=== PATIENT | female | born 1990 | race Caucasian/White ===

== ENCOUNTER 2019-01-28 15:49 | Observation (INO) | payer SELFPAY ==
[2019-01-28] MEDS ORDERED: Bupivacaine 0.5% 30 ML SDV ONE (16:53)
--- NOTE | 2019-01-28 17:24 | PCM.PREANE ---
Preanesthetic Assessment - Anesthesia/Transfusion/Family Hx Anesthesia History: Prior Anesthesia Without Reaction Family History of Anesthesia Reaction: No Transfusion History: No Prior Transfusion(s) - Review of Systems General: No Symptoms Pulmonary: No Symptoms Cardiovascular: No Symptoms Gastrointestinal: No Symptoms Neurological: No Symptoms - Physical Assessment NPO Status Date: 01/28/19 NPO Status Time: 09:00 Vital Signs: BP 110/86, HR 88, RR 20 Sat 100% T 98.1 F Height: 1.7 m Weight: 48.262 kg ASA Class: 2E Mental Status: Alert & Oriented x3 Airway Class: Mallampati = 1 Dentition: Reports: Normal Dentition Thyro-Mental Finger Breadths: 3 Mouth Opening Finger Breadths: 3 ROM/Head Extension: Full Lungs: Clear to Auscultation, Normal Respiratory Effort Cardiovascular: Regular Rate, Regular Rhythm - Lab Values: Laboratory Last Values WBC 9.13 K/mm3 (3.98-10.04) 01/28/19 16:30 RBC 5.12 M/mm3 (3.98-5.22) 01/28/19 16:30 Hgb 15.4 gm/dl (11.2-15.7) 01/28/19 16:30 Hct 44.5 % (34.1-44.9) 01/28/19 16:30 MCV 86.9 fl (79.4-94.8) 01/28/19 16:30 MCH 30.1 pg (25.6-32.2) 01/28/19 16:30 MCHC 34.6 g/dl (32.2-35.5) 01/28/19 16:30 RDW Std Deviation 41.0 fL (36.4-46.3) 01/28/19 16:30 Plt Count 326 K/mm3 (182-369) 01/28/19 16:30 MPV 11.0 fl (9.4-12.3) 01/28/19 16:30 Neut % (Auto) 45.6 % (34.0-71.1) 01/28/19 16:30 Lymph % (Auto) 43.2 % (19.3-51.7) 01/28/19 16:30 [place] % (Auto) 9.6 % (4.7-12.5) 01/28/19 16:30 Eos % (Auto) 1.2 (0.7-5.8) 01/28/19 16:30 Baso % (Auto) 0.3 % (0.1-1.2) 01/28/19 16:30 Neut # (Auto) 4.16 K/mm3 (1.56-6.13) 01/28/19 16:30 Lymph # (Auto) 3.94 K/mm3 (1.18-3.74) H 01/28/19 16:30 [place] # (Auto) 0.88 K/mm3 (0.24-0.36) H 01/28/19 16:30 Eos # (Auto) 0.11 K/mm3 (0.04-0.36) 01/28/19 16:30 Baso # (Auto) 0.03 K/mm3 (0.01-0.08) 01/28/19 16:30 Sodium 141 mEq/L (136-145) 01/28/19 16:30 Potassium 3.3 mEq/L (3.5-5.1) L 01/28/19 16:30 Chloride 101 mEq/L (98-107) 01/28/19 16:30 Carbon Dioxide 31 mEq/L (21-32) 01/28/19 16:30 Anion Gap 12.3 (5-15) 01/28/19 16:30 BUN 15 mg/dL (7-18) 01/28/19 16:30 Creatinine 0.7 mg/dL (0.55-1.02) 01/28/19 16:30 Est Cr Clr Drug Dosing 89.53 mL/min 01/28/19 16:30 Estimated GFR (MDRD) > 60 mL/min (>60) 01/28/19 16:30 BUN/Creatinine Ratio 21.4 (14-18) H 01/28/19 16:30 Glucose 67 mg/dL (74-106) L 01/28/19 16:30 Calcium 9.6 mg/dL (8.5-10.1) 01/28/19 16:30 Magnesium 1.9 mg/dl (1.8-2.4) 01/28/19 16:30 Total Bilirubin 0.2 mg/dL (0.2-1.0) 01/28/19 16:30 AST 10 U/L (15-37) L 01/28/19 16:30 ALT 20 U/L (14-59) 01/28/19 16:30 Alkaline Phosphatase 69 U/L (46-116) 01/28/19 16:30 Total Protein 7.6 g/dl (6.4-8.2) 01/28/19 16:30 Albumin 4.3 g/dl (3.4-5.0) 01/28/19 16:30 Globulin 3.3 gm/dL 01/28/19 16:30 Albumin/Globulin Ratio 1.3 (1-2) 01/28/19 16:30 HCG, Quant < 1.0 mIU/mL 01/28/19 16:30 - Allergies Allergies/Adverse Reactions: Allergies Allergy/AdvReac Type Severity Reaction Status Date / Time Penicillins Allergy Airway Verified 01/28/19 16:53 Tightness - Acknowledgements Anesthesia Type Planned: General Anesthesia Pt an Appropriate Candidate for the Planned Anesthesia: Yes Alternatives and Risks of Anesthesia Discussed w Pt/Guardian: Yes Pt/Guardian Understands and Agrees with Anesthesia Plan: Yes PreAnesthesia Questionnaire - SUBSTANCE USE Smoking Status *Q: Current Some Day Smoker Tobacco Use Within Last Twelve Months: Cigarettes Recreational Drug Type: Reports: Amphetamines (Speed) (last used 01/24/19), Marijuana/Hashish - CURRENT (IN HOUSE) MEDS Current Meds: Current Medications Discontinued Medications Bupivacaine HCl (Marcaine 0.5%) Confirm Administered Dose 30 ml .ROUTE .STK-MED ONE Stop: 01/28/19 16:54
[2019-01-28] MEDS ORDERED: Rocuronium 50 MG/5 ML Vial ONE (17:29)
[2019-01-28] MEDS ORDERED: Propofol 200 MG/20 ML SDV ONE (17:29)
[2019-01-28] MEDS ORDERED: fentaNYL 250 MCG/5 ML SDV ONE (17:30)
[2019-01-28] MEDS ORDERED: Midazolam 1 MG/ML 2 ML SDV ONE (17:30)
[2019-01-28] MEDS ORDERED: Succinylcholine/Normal Saline 100 MG/5 ML Syringe ONE (17:30)
[2019-01-28] MEDS ORDERED: Esmolol 100 MG/10 ML SDV ONE (17:56)
[2019-01-28] MEDS ORDERED: Ondansetron 4 MG/2 ML SDV ONE (18:25)
[2019-01-28] MEDS ORDERED: Lactated Ringers 1,000 ML ONE (18:46)
--- NOTE | 2019-01-28 18:47 | PCM.OPNOTE ---
- General Post-Op/Procedure Note Date of Surgery/Procedure: 01/28/19 Operative Procedure(s): laparoscopy with lysis of adhesion Pre Op Diagnosis: acute abdominal pain Post-Op Diagnosis: Same plus adhesion omentum to right mid anterior wall Anesthesia Technique: General ET Tube Primary Surgeon: Kd Padilla Secondary Surgeon: Franck Medina Anesthesia Provider: Patricio Christensen Manager Oncology: Rolan Haynes (PAS) Reason Manager Oncology Was Necessary: Assist in surgery, decrease comorbidity and mortality. Role of Manager Oncology: Assist in surgery, decrease comorbidity and mortality. Fluid Replacement, Intraop: 1,000 Output, Urine Amount: 100 EBL in mLs: 5 Drain/Tube Comments:: none (lares during surgery removed after surgery) Complications: None Condition: Good Free Text/Narrative:: Patient was transported to the operating room and placed under general anesthesia with endotracheal intubation in the supine position Lares catheter had been placed gravity drainage. SCDs in place and functioning prior surgery. Mefoxin 2 g given intravenously prior surgery with no untoward effect (patient has history of penicillin allergy) examination under anesthesia revealed anterior uterus no adnexal masses were palpated. Patient was prepared and draped in a sterile fashion. 2 mL of Marcaine 0.5% injected at the umbilicus and a vertical incision made in pneumoperitoneum needle was introduced without difficulty pneumoperitoneum was obtained. The 5 mm trocar was then introduced and utilizing the laparoscope prompt visualization of the intra-abdominal contents. An additional midline incision was made after injecting 2 mL of 0.5% Marcaine without epinephrine at the suprapubic region area of her previous scar from her ovarian cystectomy. (at age 14). The appendix appeared normal. There was one adhesion of the omentum to the anterior abdominal wall in the midportion of the abdomen which was subsequently lysed without difficulty. The gallbladder and liver area appeared normal no perihepatic adhesions or scar tissue. The pelvic organs were examined both ovaries and tubes. Normal uterus. Normal is no evidence of endometriosis seen anterior and posterior cul-de-sacs were also normal. Pneumoperitoneum was reduced and the 2 incisions closed with 4 -0 Monocryl interrupted suture and Dermabond applied. Sponge needle pack asthma count correct 2 before closure. Patient was transported postanesthesia care unit in satisfactory condition. Images: Image 001 gallbladder and right lobe of the liver Image 00 2004 ligament and liver Image 003 right ovary and fallopian tube Image 004 left ovary and fallopian tube Image 005 anterior cul-de-sac Image 006 posterior cul-de-sac Image 007 uterosacral ligaments uterus both ovaries and tubes Images 008 normal appendix Image 009 normal appendix Image 010 normal appendix Image 011 adhesion of the omentum to the anterior abdominal wall in the midportion of the abdomen on the right side Image 012 area of attachment of the adhesion after lysis of the adhesion Image 013 the area of the lower abdomen after removal of the trocar no bleeding.
[2019-01-28] MEDS ORDERED: Ketorolac 30 MG/ML SDV IVPUSH ONE (18:53)
[2019-01-28] MEDS ORDERED: Ketorolac 30 MG/ML SDV ONE (18:57)
--- NOTE | 2019-01-28 19:02 | PCM.POSTAN ---
POST ANESTHESIA ASSESSMENT - MENTAL STATUS Mental Status: Alert, Oriented - VITAL SIGNS Vital Signs: Last Vital Signs Temp 98.1 F 01/28/19 17:20 Pulse 88 01/28/19 17:07 Resp 20 01/28/19 17:07 BP 110/86 01/28/19 17:07 Pulse Ox 100 01/28/19 17:07 POSTOP VS 125/85, HR 84, RR 12, T 97 F, SpO2 100% - RESPIRATORY Respiratory Status: Respiratory Rate WNL, Airway Patent, O2 Saturation Stable, Supplemental Oxygen - CARDIOVASCULAR CV Status: Pulse Rate WNL, Blood Pressure Stable - GASTROINTESTINAL GI Status: No Symptoms - PAIN Pain Score: 3 - POST OP HYDRATION Hydration Status: Adequate & Stable
[2019-01-28] MEDS ORDERED: Lactated Ringers 1,000 ML IV SCH (19:15)
[2019-01-28] MEDS ORDERED: Ondansetron 4 MG/2 ML SDV IVPUSH PRN (19:59)
[2019-01-28] MEDS ORDERED: Magnesium Citrate Solution 296 ML Bottle PO ONE (19:59)
--- NOTE | 2019-01-28 21:05 | PCM48HPAN ---
Post Anesthesia Note - EVALUATION WITHIN 48HRS OF ANESTHETIC Vital Signs in Normal Range: Yes Patient Participated in Evaluation: Yes Respiratory Function Stable: Yes Airway Patent: Yes Cardiovascular Function Stable: Yes Hydration Status Stable: Yes Pain Control Satisfactory: Yes Nausea and Vomiting Control Satisfactory: Yes Mental Status Recovered: Yes Vital Signs: Last Vital Signs Temp 98.4 F 01/28/19 19:50 Pulse 69 01/28/19 19:50 Resp 15 01/28/19 19:50 BP 109/84 01/28/19 19:50 Pulse Ox 98 01/28/19 19:50
[2019-01-29] MEDS ORDERED: Bisacodyl 10 MG Supp RECTAL ONE (00:13)
[2019-01-29] MEDS: Acetaminophen 325 MG Tab PO PRN ×2 (00:23→09:27)
[2019-01-29] MEDS: Nicotine 21 MG/24 Hr Patch TRDERM SCH ×2 (00:28→09:26)
[2019-01-29] MEDS ORDERED: Ketorolac 30 MG/ML SDV IVPUSH PRN (01:00)
[2019-01-29] MEDS ORDERED: Ibuprofen 600 MG Tab PO PRN (07:11)
--- NOTE | 2019-01-29 08:22 | PCM.DCSUM1 ---
Discharge Summary - Hospital Course Free Text/Narrative:: [facility] Post-Op/Procedure Note Patient Name: YELENA CHAPMAN Date of : 86 Patient Status: Observation Attending Provider: Kd Padilla Date: 01/28/19 18:38 Initialization Date: 01/28/19 18:38 - General Post-Op/Procedure Note Date of Surgery/Procedure: 01/28/19 Operative Procedure(s): laparoscopy with lysis of adhesion Pre Op Diagnosis: acute abdominal pain Post-Op Diagnosis: Same plus adhesion omentum to right mid anterior wall Anesthesia Technique: General ET Tube Primary Surgeon: Kd Padilla Secondary Surgeon: Franck Medina Anesthesia Provider: Patricio Christensen Script Girl: Rolan Haynes (PAS) Reason Script Girl Was Necessary: Assist in surgery, decrease comorbidity and mortality. Role of Script Girl: Assist in surgery, decrease comorbidity and mortality. Fluid Replacement, Intraop: 1,000 Output, Urine Amount: 100 EBL in mLs: 5 Drain/Tube Comments:: none (lares during surgery removed after surgery) Complications: None Condition: Good Free Text/Narrative:: Patient was transported to the operating room and placed under general anesthesia with endotracheal intubation in the supine position Lares catheter had been placed gravity drainage. SCDs in place and functioning prior surgery. Mefoxin 2 g given intravenously prior surgery with no untoward effect (patient has history of penicillin allergy) examination under anesthesia revealed anterior uterus no adnexal masses were palpated. Patient was prepared and draped in a sterile fashion. 2 mL of Marcaine 0.5% injected at the umbilicus and a vertical incision made in pneumoperitoneum needle was introduced without difficulty pneumoperitoneum was obtained. The 5 mm trocar was then introduced and utilizing the laparoscope prompt visualization of the intra-abdominal contents. An additional midline incision was made after injecting 2 mL of 0.5% Marcaine without epinephrine at the suprapubic region area of her previous scar from her ovarian cystectomy. (at age 14). The appendix appeared normal. There was one adhesion of the omentum to the anterior abdominal wall in the midportion of the abdomen which was subsequently lysed without difficulty. The gallbladder and liver area appeared normal no perihepatic adhesions or scar tissue. The pelvic organs were examined both ovaries and tubes. Normal uterus. Normal is no evidence of endometriosis seen anterior and posterior cul-de-sacs were also normal. Pneumoperitoneum was reduced and the 2 incisions closed with 4 -0 Monocryl interrupted suture and Dermabond applied. Sponge needle pack asthma count correct 2 before closure. Patient was transported postanesthesia care unit in satisfactory condition. Images: Image 001 gallbladder and right lobe of the liver Image 00 2004 ligament and liver Image 003 right ovary and fallopian tube Image 004 left ovary and fallopian tube Image 005 anterior cul-de-sac Image 006 posterior cul-de-sac Image 007 uterosacral ligaments uterus both ovaries and tubes Images 008 normal appendix Image 009 normal appendix Image 010 normal appendix Image 011 adhesion of the omentum to the anterior abdominal wall in the midportion of the abdomen on the right side Image 012 area of attachment of the adhesion after lysis of the adhesion Image 013 the area of the lower abdomen after removal of the trocar no bleeding. Patient had 3 bowel movements after 0600 this morning and one bottle of Magnesium Citrate last night and dulcolax Good bowel sounds, chest clear. Nicotine patch in place. Declined Rx for same. Abdomen stil slight tenderness, will have on Fleets enema given this morning then home at noon. Recommend stopping all illicit and non prescribed xanax. Colace 2 bid to tid and if needed once weely milk of magnesia RTC 2 weeks for post op check Shower only x6 weeks HPI Initial Comments: [facility] Post-Op/Procedure Note Patient Name: YELENA CHAPMAN Date of : 86 Patient Status: Observation Attending Provider: Kd Padilla Date: 01/28/19 18:38 Initialization Date: 01/28/19 18:38 - General Post-Op/Procedure Note Date of Surgery/Procedure: 01/28/19 Operative Procedure(s): laparoscopy with lysis of adhesion Pre Op Diagnosis: acute abdominal pain Post-Op Diagnosis: Same plus adhesion omentum to right mid anterior wall Anesthesia Technique: General ET Tube Primary Surgeon: Kd Padilla Secondary Surgeon: Franck Medina Anesthesia Provider: Patricio Christensen Script Girl: Rolan Haynes (PAS) Reason Script Girl Was Necessary: Assist in surgery, decrease comorbidity and mortality. Role of Script Girl: Assist in surgery, decrease comorbidity and mortality. Fluid Replacement, Intraop: 1,000 Output, Urine Amount: 100 EBL in mLs: 5 Drain/Tube Comments:: none (lares during surgery removed after surgery) Complications: None Condition: Good Free Text/Narrative:: Patient was transported to the operating room and placed under general anesthesia with endotracheal intubation in the supine position Lares catheter had been placed gravity drainage. SCDs in place and functioning prior surgery. Mefoxin 2 g given intravenously prior surgery with no untoward effect (patient has history of penicillin allergy) examination under anesthesia revealed anterior uterus no adnexal masses were palpated. Patient was prepared and draped in a sterile fashion. 2 mL of Marcaine 0.5% injected at the umbilicus and a vertical incision made in pneumoperitoneum needle was introduced without difficulty pneumoperitoneum was obtained. The 5 mm trocar was then introduced and utilizing the laparoscope prompt visualization of the intra-abdominal contents. An additional midline incision was made after injecting 2 mL of 0.5% Marcaine without epinephrine at the suprapubic region area of her previous scar from her ovarian cystectomy. (at age 14). The appendix appeared normal. There was one adhesion of the omentum to the anterior abdominal wall in the midportion of the abdomen which was subsequently lysed without difficulty. The gallbladder and liver area appeared normal no perihepatic adhesions or scar tissue. The pelvic organs were examined both ovaries and tubes. Normal uterus. Normal is no evidence of endometriosis seen anterior and posterior cul-de-sacs were also normal. Pneumoperitoneum was reduced and the 2 incisions closed with 4 -0 Monocryl interrupted suture and Dermabond applied. Sponge needle pack asthma count correct 2 before closure. Patient was transported postanesthesia care unit in satisfactory condition. Images: Image 001 gallbladder and right lobe of the liver Image 00 2004 ligament and liver Image 003 right ovary and fallopian tube Image 004 left ovary and fallopian tube Image 005 anterior cul-de-sac Image 006 posterior cul-de-sac Image 007 uterosacral ligaments uterus both ovaries and tubes Images 008 normal appendix Image 009 normal appendix Image 010 normal appendix Image 011 adhesion of the omentum to the anterior abdominal wall in the midportion of the abdomen on the right side Image 012 area of attachment of the adhesion after lysis of the adhesion Image 013 the area of the lower abdomen after removal of the trocar no bleeding. Patient had 3 bowel movements after 0600 this morning and one bottle of Magnesium Citrate last night and dulcolax Good bowel sounds, chest clear. Nicotine patch in place. Declined Rx for same. Abdomen stil slight tenderness, will have on Fleets enema given this morning then home at noon. Recommend stopping all illicit and non prescribed xanax. Colace 2 bid to tid and if needed once weely milk of magnesia RTC 2 weeks for post op check Shower only x6 weeks Brief History: [facility] . Post-Op/Procedure Note. [facility]: [id number]. Date of : Patient Status: Observation. Attending Provider: Kd Padilla Number: [id number]. Date: 01/28/19 18:38Initialization Date: 01/28/19 18:38. - General Post-Op/Procedure Note. Date of Surgery/Procedure: 01/28/19. Operative Procedure(s): laparoscopy with lysis of adhesion. Pre Op Diagnosis: acute abdominal pain. Post-Op Diagnosis: Same plus adhesion omentum to right mid anterior wall. Anesthesia Technique: General ET Tube. Primary Surgeon: Kd Padilla. Secondary Surgeon: Franck Medina. Anesthesia Provider: Patricio Christensen. Script Girl: Rolan Haynes ([facility]). Reason Script Girl Was Necessary: Assist in surgery, decrease comorbidity and mortality. Role of Script Girl: Assist in surgery, decrease comorbidity and mortality. Fluid Replacement, Intraop: 1,000. Output, Urine Amount: 100. EBL in mLs: 5. Drain/ Tube Comments:: none (lares during surgery removed after surgery). Complications: None. Condition: Good. Free Text/Narrative:: Patient was transported to the operating room and placed under general anesthesia with endotracheal intubation in the supine position Lares catheter had been placed gravity drainage. SCDs in place and functioning prior surgery. Mefoxin 2 g given intravenously prior surgery with no untoward effect (patient has history of penicillin allergy) examination under anesthesia revealed anterior uterus no adnexal masses were palpated. Patient was prepared and draped in a sterile fashion. 2 mL of Marcaine 0.5% injected at the umbilicus and a vertical incision made in pneumoperitoneum needle was introduced without difficulty pneumoperitoneum was obtained. The 5 mm trocar was then introduced and utilizing the laparoscope prompt visualization of the intra-abdominal contents. An additional midline incision was made after injecting 2 mL of 0.5% Marcaine without epinephrine at the suprapubic region area of her previous scar from her ovarian cystectomy. (at age 14). The appendix appeared normal. There was one adhesion of the omentum to the anterior abdominal wall in the midportion of the abdomen which was subsequently lysed without difficulty. The gallbladder and liver area appeared normal no perihepatic adhesions or scar tissue. The pelvic organs were examined both ovaries and tubes. Normal uterus. Normal is no evidence of endometriosis seen anterior and posterior cul-de-sacs were also normal. Pneumoperitoneum was reduced and the 2 incisions closed with 4-0 Monocryl interrupted suture and Dermabond applied. Sponge needle pack asthma count correct 2 before closure. Patient was transported postanesthesia care unit in satisfactory condition. Images: Image 001 gallbladder and right lobe of the liver. Image 00 2004 ligament and liver. Image 003 right ovary and fallopian tube. Image 004 left ovary and fallopian tube. Image 005 anterior cul-de-sac. Image 006 posterior cul-de-sac. Image 007 uterosacral ligaments uterus both ovaries and tubes. Images 008 normal appendix. Image 009 normal appendix. Image 010 normal appendix. Image 011 adhesion of the omentum to the anterior abdominal wall in the midportion of the abdomen on the right side. Image 012 area of attachment of the adhesion after lysis of the adhesion. Image 013 the area of the lower abdomen after removal of the trocar no bleeding. Patient had 3 bowel movements after 0600 this morning and one bottle of Magnesium Citrate last night and dulcolax. Good bowel sounds, chest clear. Nicotine patch in place. Declined Rx for same. Abdomen stil slight tenderness, will have on Fleets enema given this morning then home at noon. Recommend stopping all illicit and non prescribed xanax. Colace 2 bid to tid and if needed once weely milk of magnesia. RTC 2 weeks for post op check. Shower only x6 weeks Diagnosis: Stroke: No - Discharge Data Discharge Date: 01/29/19 Discharge Disposition: Home, Self-Care 01 Condition: Good - Referral to Home Health Primary Care Physician: PCP None - Patient Summary/Data Operative Procedure(s) Performed: laparoscopy with lysis of adhesion Complications: none Consults: none Hospital Course: uneventful - Patient Instructions Diet: Usual Diet as Tolerated Driving: May Drive Today Showering/Bathing: May Shower, No Tub Bathing/Swimming (x6 weeks) Wound/Incision Care: Keep Operative Site/Wound Site Clean and Dry Notify Provider of: Fever, Increased Pain, Swelling and Redness, Drainage, Nausea and/or Vomiting - Discharge Plan *PRESCRIPTION DRUG MONITORING PROGRAM REVIEWED*: Not Applicable *COPY OF PRESCRIPTION DRUG MONITORING REPORT IN PATIENT APRIL: Not Applicable Prescriptions/Med Rec: Docusate Sodium [Colace] 100 mg PO BID #50 capsule Home Medications: Home Meds Acetaminophen [Tylenol] 650 mg PO Q6H PRN tablet 01/29/19 [Rx] Docusate Sodium [Colace] 100 mg PO BID #50 capsule 01/29/19 [Rx] Ibuprofen [Motrin] 600 mg PO Q6H PRN tablet 01/29/19 [Rx] Patient Handouts: Steps to Quit Smoking - Discharge Summary/Plan Comment DC Time >30 min.: No - Patient Data Vitals - Most Recent: Last Vital Signs Temp 98.1 F 01/29/19 04:35 Pulse 94 01/29/19 04:35 Resp 18 01/29/19 04:35 BP 114/80 01/29/19 04:35 Pulse Ox 100 01/29/19 04:35 Weight - Most Recent: 110 lb 9.6 oz I&O - Last 24 hours: Intake & Output 01/28/19 01/29/19 01/29/19 22:59 06:59 14:59 Intake Total 1400 500 Output Total 100 Balance 1300 500 Lab Results - Last 24 hrs: Laboratory Results - last 24 hr 01/28/19 01/28/19 01/28/19 Range/Units 16:30 16:30 16:30 WBC 9.13 (3.98-10.04) K/mm3 RBC 5.12 (3.98-5.22) M/mm3 Hgb 15.4 (11.2-15.7) gm/dl Hct 44.5 (34.1-44.9) % MCV 86.9 (79.4-94.8) fl MCH 30.1 (25.6-32.2) pg MCHC 34.6 (32.2-35.5) g/dl RDW Std Deviation 41.0 (36.4-46.3) fL Plt Count 326 (182-369) K/mm3 MPV 11.0 (9.4-12.3) fl Neut % (Auto) 45.6 (34.0-71.1) % Lymph % (Auto) 43.2 (19.3-51.7) % [place] % (Auto) 9.6 (4.7-12.5) % Eos % (Auto) 1.2 (0.7-5.8) Baso % (Auto) 0.3 (0.1-1.2) % Neut # (Auto) 4.16 (1.56-6.13) K/mm3 Lymph # (Auto) 3.94 H (1.18-3.74) K/mm3 [place] # (Auto) 0.88 H (0.24-0.36) K/mm3 Eos # (Auto) 0.11 (0.04-0.36) K/mm3 Baso # (Auto) 0.03 (0.01-0.08) K/mm3 Sodium 141 (136-145) mEq/L Potassium 3.3 L (3.5-5.1) mEq/L Chloride 101 (98-107) mEq/L Carbon Dioxide 31 (21-32) mEq/L Anion Gap 12.3 (5-15) BUN 15 (7-18) mg/dL Creatinine 0.7 (0.55-1.02) mg/dL Est Cr Clr Drug Dosing 89.53 mL/min Estimated GFR (MDRD) > 60 (>60) mL/min BUN/Creatinine Ratio 21.4 H (14-18) Glucose 67 L (74-106) mg/dL Calcium 9.6 (8.5-10.1) mg/dL Magnesium 1.9 (1.8-2.4) mg/dl Total Bilirubin 0.2 (0.2-1.0) mg/dL AST 10 L (15-37) U/L ALT 20 (14-59) U/L Alkaline Phosphatase 69 (46-116) U/L Total Protein 7.6 (6.4-8.2) g/dl Albumin 4.3 (3.4-5.0) g/dl Globulin 3.3 gm/dL Albumin/Globulin Ratio 1.3 (1-2) HCG, Quant < 1.0 mIU/mL Blood Type O POSITIVE Gel Antibody Screen Negative 01/29/19 Range/Units 04:46 WBC 8.69 (3.98-10.04) K/mm3 RBC 4.86 (3.98-5.22) M/mm3 Hgb 14.5 (11.2-15.7) gm/dl Hct 42.6 (34.1-44.9) % MCV 87.7 (79.4-94.8) fl MCH 29.8 (25.6-32.2) pg MCHC 34.0 (32.2-35.5) g/dl RDW Std Deviation 41.5 (36.4-46.3) fL Plt Count 298 (182-369) K/mm3 MPV 11.1 (9.4-12.3) fl Neut % (Auto) 81.2 H (34.0-71.1) % Lymph % (Auto) 13.3 L (19.3-51.7) % [place] % (Auto) 5.3 (4.7-12.5) % Eos % (Auto) 0 L (0.7-5.8) Baso % (Auto) 0.1 (0.1-1.2) % Neut # (Auto) 7.05 H (1.56-6.13) K/mm3 Lymph # (Auto) 1.16 L (1.18-3.74) K/mm3 [place] # (Auto) 0.46 H (0.24-0.36) K/mm3 Eos # (Auto) 0.00 L (0.04-0.36) K/mm3 Baso # (Auto) 0.01 (0.01-0.08) K/mm3 Sodium (136-145) mEq/L Potassium (3.5-5.1) mEq/L Chloride (98-107) mEq/L Carbon Dioxide (21-32) mEq/L Anion Gap (5-15) BUN (7-18) mg/dL Creatinine (0.55-1.02) mg/dL Est Cr Clr Drug Dosing mL/min Estimated GFR (MDRD) (>60) mL/min BUN/Creatinine Ratio (14-18) Glucose (74-106) mg/dL Calcium (8.5-10.1) mg/dL Magnesium (1.8-2.4) mg/dl Total Bilirubin (0.2-1.0) mg/dL AST (15-37) U/L ALT (14-59) U/L Alkaline Phosphatase (46-116) U/L Total Protein (6.4-8.2) g/dl Albumin (3.4-5.0) g/dl Globulin gm/dL Albumin/Globulin Ratio (1-2) HCG, Quant mIU/mL Blood Type Gel Antibody Screen Med Orders - Current: Current Medications Acetaminophen (Tylenol) 650 mg PO Q6H PRN PRN Reason: Pain (mild 1-3) Last Admin: 01/29/19 00:23 Dose: 650 mg Ibuprofen (Motrin) 600 mg PO Q6H PRN PRN Reason: Pain (mild 1-3) Ketorolac Tromethamine (Toradol) 30 mg IVPUSH Q8H PRN PRN Reason: Pain (moderate 4-6) Last Admin: 01/29/19 04:38 Dose: 30 mg Miscellaneous Information (Remove Patch) 1 ea TRDERM DAILY [facility] Nicotine (Habitrol) 21 mg TRDERM DAILY [facility] Last Admin: 01/29/19 00:28 Dose: 21 mg Ondansetron HCl (Zofran) 4 mg IVPUSH Q4H PRN PRN Reason: Nausea/Vomiting Discontinued Medications Bisacodyl (Dulcolax) 10 mg RECTAL ONETIME ONE Stop: 01/29/19 00:14 Last Admin: 01/29/19 00:23 Dose: 10 mg Bupivacaine HCl (Marcaine 0.5%) Confirm Administered Dose 30 ml .ROUTE .STK-MED ONE Stop: 01/28/19 16:54 Last Admin: 01/28/19 18:12 Dose: 4 ml Esmolol HCl (Esmolol) Confirm Administered Dose 100 mg .ROUTE .STK-MED ONE Stop: 01/28/19 17:57 Fentanyl (Sublimaze) Confirm Administered Dose 250 mcg .ROUTE .STK-MED ONE Stop: 01/28/19 17:31 Cefoxitin Sodium (Mefoxin In Dextrose,Iso-Osm 2 Gm/50 Ml) Confirm Administered Dose 50 mls @ as directed .ROUTE .STK-MED ONE Stop: 01/28/19 17:57 Lactated Ringer's (Ringers, Lactated) Confirm Administered Dose 1,000 mls @ as directed .ROUTE .STK-MED ONE Stop: 01/28/19 18:47 Lactated Ringer's (Ringers, Lactated) 1,000 mls @ 125 mls/hr IV ASDIRECTED MARCO Last Admin: 01/28/19 19:09 Dose: 125 mls/hr Acetaminophen (Ofirmev) 65 mls @ 400 mls/hr IV NOW ONE Stop: 01/28/19 19:39 Last Admin: 01/28/19 20:03 Dose: Not Given Acetaminophen (Ofirmev) 100 mls @ 400 mls/hr IV NOW ONE Stop: 01/28/19 20:03 Last Admin: 01/28/19 19:50 Dose: 400 mls/hr Ibuprofen (Motrin) 600 mg PO Q6H PRN PRN Reason: Pain (mild 1-3) Ketorolac Tromethamine (Toradol) 30 mg IVPUSH ONETIME ONE Stop: 01/28/19 18:54 Last Admin: 01/28/19 18:58 Dose: 30 mg Ketorolac Tromethamine (Toradol) Confirm Administered Dose 30 mg .ROUTE .STK- MED ONE Stop: 01/28/19 18:58 Last Admin: 01/28/19 19:16 Dose: Not Given Lidocaine HCl (Xylocaine-Mpf 1%) Confirm Administered Dose 5 ml .ROUTE .STK-MED ONE Stop: 01/28/19 17:30 Magnesium Citrate (Citrate Of Magnesia) 296 ml PO ONETIME ONE Stop: 01/28/19 20:00 Last Admin: 01/28/19 20:34 Dose: 296 ml Midazolam HCl (Versed 1 Mg/Ml) Confirm Administered Dose 2 mg .ROUTE .STK-MED ONE Stop: 01/28/19 17:31 Ondansetron HCl (Zofran) Confirm Administered Dose 4 mg .ROUTE .STK-MED ONE Stop: 01/28/19 18:26 Propofol (Diprivan 20 Ml) Confirm Administered Dose 200 mg .ROUTE .STK-MED ONE Stop: 01/28/19 17:30 Rocuronium Wilbur (Zemuron) Confirm Administered Dose 50 mg .ROUTE .STK-MED ONE Stop: 01/28/19 17:30 Succinylcholine Chloride (Succinylcholine In Ns Pf) Confirm Administered Dose 100 mg .ROUTE .STK-MED ONE Stop: 01/28/19 17:31 Sugammadex Sodium (Bridion) Confirm Administered Dose 500 mg .ROUTE .STK-MED ONE Stop: 01/28/19 18:35
[2019-01-29] MEDS ORDERED: Ibuprofen 400 MG Tab PO PRN (23:00)
== END 2019-01-29 13:02 | disposition home or self-care (01) ==
LOC: JD.MS 15:49
PROVIDERS: ADMIT Obstetrics & Gynecology; ATTEND Obstetrics & Gynecology
DX: K66.0 Peritoneal adhesions (postprocedural) (postinfection) (principal); F17.210 Nicotine dependence, cigarettes, uncomplicated; Z88.0 Allergy status to penicillin
CPT/HCPCS: 00840; 36415; 80053; 83735; 84702; 85025; 86850; 86900; 86901; A9270-GY; G0378; J0131; J0330; J0694; J1885; J2001; J2250; J2405; J2704; J3010; J3490; J7120